=== PATIENT | female | born 1995 ===

== ENCOUNTER 2017-08-16 00:26 | Emergency (ER) | payer OTHER ==
--- NOTE | 2017-08-16 00:44 | CPEKG ---
Heart Rate: 90 RR Interval: 667 P-R Interval: 124 QRSD Interval: 66 QT Interval: 356 QTC Interval: 436 P H[place]: 9 QRS [place]: 69 T Wave H[place]: 36 EKG Severity - NORMAL ECG - EKG Impression: SINUS RHYTHM Electronically Signed By: Chetan Ward 16-Aug-2017 05:42:08
[2017-08-16 00:52] LABS: PLATELET COUNT 317 10^3/uL (150-400)
--- NOTE | 2017-08-16 05:04 | EDPHY ---
H & P Stated Complaint: 5 alcoholic drinks and took 10 50mg trazodone but threw right up Time Seen by Provider: 08/16/17 01:03 HPI/ROS: Chief Complaint: Alcohol intoxication, overdose HPI: 21-year-old woman had 5 alcoholic drinks tonight and then got into an argument with her boyfriend. Patient states she took 10 of her trazodone tablets, but then immediately vomited them. Patient denies being suicidal but states she did this out of anger. Does have a history of depression but is not consistently taking her Paxil. No prior suicide attempts. She is currently zoila for safety. No recent illness. No fevers or chills. Otherwise currently without complaint. ROS: 10 point Review of Systems is negative except as noted in the HPI. PMH: Depression Social History: Positive smoking, occasional alcohol, no recreational drug use Family History: non-contributory Physical Exam: Gen: Awake, Alert, slurred speech HEENT: Nose: no rhinorrhea Eyes: PERRLA, EOMI Mouth: Moist mucosa Neck: Supple, no JVD Chest: nontender, lungs clear to auscultation Heart: S1, S2 normal, no murmur Abd: Soft, non-tender, no guarding Back: no CVA tenderness, no midline tenderness Ext: no edema, non-tender Skin: no rash Neuro: CN II-XII intact, Sensation grossly intact, Strength 5/5 in bilateral upper and lower extremities - Personal History LMP (Females 10-55): 1-7 Days Ago Current Tetanus/Diphtheria Vaccine: Yes Current Tetanus Diphtheria and Acellular Pertussis (TDAP): Yes - Medical/Surgical History Hx Asthma: No Hx Chronic Respiratory Disease: No Hx Diabetes: No Hx Cardiac Disease: No Hx Renal Disease: No Hx Cirrhosis: No Hx Alcoholism: No Hx HIV/AIDS: No Hx Splenectomy or Spleen Trauma: No Other PMH: depression, thyroid - Social History Smoking Status: Current every day smoker Constitutional: Initial Vital Signs Temperature (C) 36.5 C 08/16/17 00:36 Heart Rate 95 08/16/17 00:36 Respiratory Rate 16 08/16/17 00:36 Blood Pressure 120/70 08/16/17 00:36 O2 Sat (%) 97 08/16/17 00:36 O2 Delivery Mode Room Air Allergies/Adverse Reactions: No Known Allergies Allergy (Unverified 08/16/17 00:35) Home Medications: Medication Instructions Recorded Levothyroxine 08/16/17 Prozac 10 MG (*) 08/16/17 traZODONE 50MG (*) 08/16/17 Medical Decision Making ED Course/Re-evaluation: Patient is medically cleared for mental health evaluation. Patient has been seen by mental health. Patient is zoila for safety. She is not suicidal at this time. Will discharge with follow up with [facility] at - Data Points Laboratory Results: Laboratory Results 08/16/17 00:20 08/16/17 00:20 08/16/17 08/16/17 08/16/17 00:50 00:50 00:20 WBC RBC Hgb Hct MCV MCH MCHC RDW Plt Count MPV Neut % (Auto) Lymph % (Auto) [place] % (Auto) Eos % (Auto) Baso % (Auto) Nucleat RBC Rel Count Absolute Neuts (auto) Absolute Lymphs (auto) Absolute Monos (auto) Absolute Eos (auto) Absolute Basos (auto) Absolute Nucleated RBC Immature Gran % Immature Gran # Sodium 149 mEq/L H mEq/L (135-145) Potassium 3.5 mEq/L mEq/L (3.5-5.2) Chloride 109 mEq/L mEq/L (97-110) Carbon Dioxide 20 mEq/l L mEq/l (22-31) Anion Gap 20 mEq/L H mEq/L (8-16) BUN 8 mg/dL mg/dL (7-23) Creatinine 0.5 mg/dL L mg/dL (0.6-1.0) Estimated GFR > 60 Glucose 86 mg/dL mg/dL (70-100) Calcium 9.8 mg/dL mg/dL (8.5-10.4) Urine Test NEGATIVE Urine Opiates Screen NEGATIVE (NEGATIVE) Urine Barbiturates NEGATIVE (NEGATIVE) Ur Phencyclidine Scrn NEGATIVE (NEGATIVE) Ur Amphetamine Screen NEGATIVE (NEGATIVE) U Benzodiazepines Scrn NEGATIVE (NEGATIVE) Urine Cocaine Screen NEGATIVE (NEGATIVE) U Marijuana (THC) Screen NEGATIVE (NEGATIVE) Ethyl Alcohol 31 mg/dL H mg/dL (0-10) 08/16/17 00:20 WBC 7.89 10^3/uL 10^3/uL (3.80-9.50) RBC 4.20 10^6/uL 10^6/uL (4.18-5.33) Hgb 14.0 g/dL g/dL (12.6-16.3) Hct 39.2 % % (38.0-47.0) MCV 93.3 fL fL (81.5-99.8) MCH 33.3 pg pg (27.9-34.1) MCHC 35.7 g/dL g/dL (32.4-36.7) RDW 12.1 % % (11.5-15.2) Plt Count 317 10^3/uL 10^3/uL (150-400) MPV 8.8 fL fL (8.7-11.7) Neut % (Auto) 49.4 % % (39.3-74.2) Lymph % (Auto) 39.3 % % (15.0-45.0) [place] % (Auto) 7.4 % % (4.5-13.0) Eos % (Auto) 2.8 % % (0.6-7.6) Baso % (Auto) 0.8 % % (0.3-1.7) Nucleat RBC Rel Count 0.0 % % (0.0-0.2) Absolute Neuts (auto) 3.91 10^3/uL 10^3/uL (1.70-6.50) Absolute Lymphs (auto) 3.10 10^3/uL H 10^3/uL (1.00-3.00) Absolute Monos (auto) 0.58 10^3/uL 10^3/uL (0.30-0.80) Absolute Eos (auto) 0.22 10^3/uL 10^3/uL (0.03-0.40) Absolute Basos (auto) 0.06 10^3/uL 10^3/uL (0.02-0.10) Absolute Nucleated RBC 0.00 10^3/uL 10^3/uL (0-0.01) Immature Gran % 0.3 % % (0.0-1.1) Immature Gran # 0.02 10^3/uL 10^3/uL (0.00-0.10) Sodium Potassium Chloride Carbon Dioxide Anion Gap BUN Creatinine Estimated GFR Glucose Calcium Urine Test Urine Opiates Screen Urine Barbiturates Ur Phencyclidine Scrn Ur Amphetamine Screen U Benzodiazepines Scrn Urine Cocaine Screen U Marijuana (THC) Screen Ethyl Alcohol Departure - Departure Disposition: Home, Routine, Self-Care Clinical Impression: Alcoholic intoxication, Depression Condition: Good Instructions: Depression (ED), Alcohol Intoxication (ED) Additional Instructions: [facility] with [facility] 2-3 days for continued treatment of your depression. Return to the emergency department for increasing suicidal thoughts, hopelessness, worsening anxiety, or any other concerns. Referrals: NONE *PRIMARY CARE P,. [Primary Care Provider] - As per Instructions
[2017-08-16 05:17] VITALS: BP 124/76
== END 2017-08-16 05:16 | disposition home or self-care (01) ==
LOC: EEVIPCON 00:26
DX: F10.129 Alcohol abuse with intoxication, unspecified (principal); F32.9 Major depressive disorder, single episode, unspecified; F17.200 Nicotine dependence, unspecified, uncomplicated
CPT/HCPCS: 80305; G0480